=== PATIENT | male | born 1965 | race Caucasian/White ===

== ENCOUNTER 2020-03-15 18:20 | Emergency (ER) | payer OTHER ==
[~2020-03-15] VITALS: Ht 160 cm; Wt 75.0 kg
[2020-03-15 19:26] LABS: COVID AG,FIA SOURCE NASOPHARYNGEAL
[2020-03-15 20:24] VITALS: BP 141/76
== END 2020-03-15 20:43 | disposition home or self-care (01) ==
LOC: EMS 18:20
DX: R05 Cough (principal); F17.210 Nicotine dependence, cigarettes, uncomplicated; Z20.828 Contact with and (suspected) exposure to other viral communicable diseases
CPT/HCPCS: 87426